=== PATIENT | male | born 1985 | race Hispanic/Latino ===

== ENCOUNTER 2021-10-01 18:27 | Inpatient (IN) | payer OTHER, SELFPAY ==
[~2021-10-01 18:27] MED LIST: Iopamidol-370 76% 500 ML 1 ML ONE
[2021-10-01] MEDS ORDERED: Promethazine HCl 25 MG/ML VIAL ONE (18:46)
[2021-10-01] MEDS ORDERED: Rocuronium Bromide 10 MG/ML (10ML VIAL) ONE (19:22)
[2021-10-01 19:27] LABS: #Eosinphils 0.1 thou/uL (0.0-0.7); #Lymphocytes 1.3 thou/uL (1.20-3.40); #Monocytes 0.8 thou/uL (0.11-0.59); %Basophils 0.3 % (0.0-1.0); %Eosinophils 0.6 % (0.0-10.0); %Lymphocytes 9.4 % (21.0-51.0); %Monocytes 5.9 % (0.0-10.0); %Neutrophils 83.8 % (42.0-75.0); Hemoglobin 12.5 g/dL (14.0-18.0); Mean Corpuscular HGB CONC 33.9 g/dL (32.0-36.0); Mean Corpuscular Hemoglobin 30.5 pg (27.0-31.0); Platelet Count 270 thou/uL (130-400); RBC Distribution Width 12.3 % (11.5-14.5); White Blood Cell (WBC) Count 14.3 thou/uL (4.8-10.8)
[2021-10-01] MEDS ORDERED: Fentanyl 100 MCG/2 ML VIAL ONE (19:33)
[2021-10-01 19:50] LABS: Acetaminophen Less than 10.0 mcg/mL (10.0-30.0); Alcohol Less than 10 mg/dL (Less than 10); Salicylate Less than 8.0 mg/dL (15.0-30.0)
[2021-10-01 19:51] LABS: ALT (SGPT) 17 U/L (8-55); AST (SGOT) 27 U/L (5-34); Albumin 4.2 g/dL (3.5-5.0); Alkaline Phosphatase 51 U/L (40-110); Anion Gap 13 mmol/L (10-20); BUN (Urea Nitrogen) 17 mg/dL (8.9-20.6); Bilirubin, Total 0.4 mg/dL (0.2-1.2); Calc. Creatinine Clearance 0 mL/min (70-130); Calcium 8.6 mg/dL (7.8-10.44); Carbon Dioxide 23 mmol/L (22-29); Chloride 105 mmol/L (98-107); Globulin 2.6 g/dL (2.4-3.5); Glucose 171 mg/dL (70-105); Potassium 3.1 mmol/L (3.5-5.1); Protein, Total 6.8 g/dL (6.0-8.3); Sodium 138 mmol/L (136-145)
[2021-10-01 19:53] LABS: Analyzer IN Cardio ER; Base Excess (BEa) -3.3 mEq/L (-2.0 to +3.0); Calcium, Ionized (arterial) 1.11 mmol/L (1.12-1.30); Carboxyhemoglobin (COHb) 0.3 gm% (0.0-3.0); Hemoglobin (Hb) 12.6 g/dL (14.0-18.0); O2 Tension (PaO2), arterial 171.7 mmHg (80.0-100.0); Potassium - ABG Lab 3.16 mmol/L (3.70-5.30)
[2021-10-01 19:59] LABS: Puncture Site RRA
[2021-10-01 20:20] LABS: INR-International Normal Ratio 1.1; PTT 24.6 sec (22.9-36.1); Prothrombin Time 13.8 sec (12.0-14.7)
[2021-10-01] MEDS ORDERED: Dextrose 50% Abboject 50 ML SYRINGE SLOW IVP PRN (20:23)
[2021-10-01] MEDS ORDERED: hydrALAZINE 20 MG/ML VIAL SLOW IVP PRN (20:23)
[2021-10-01] MEDS ORDERED: Dextrose 5% in Water 1,000 ML IV PRN (20:23)
[2021-10-01] MEDS ORDERED: levETIRAcetam 500 MG/5 ML VIAL ONE ×2 (20:28→20:29)
[2021-10-01] MEDS ORDERED: Ventilator Sedation Protocol 1 EACH FS ONE (20:31)
[2021-10-01] MEDS ORDERED: Acetaminophen 650 MG/20.3 ML UDCUP PER TUBE PRN (20:32)
[2021-10-01 20:54] LABS: Magnesium 1.8 mg/dL (1.6-2.6); Phosphorus 3.6 mg/dL (2.3-4.7)
[2021-10-01 21:13] LABS: SARS-CoV-2 NAA Rapid Test Not Detected (NotDetected)
[2021-10-01] MEDS: Sodium Chloride 0.9% 1,000 ML IV SCH (21:30)
[2021-10-01] MEDS ORDERED: DISCONTINUE PREVIOUS NARCOTIC PAIN MEDICATIONS AND BENZODIAZEPINES FS SCH (21:30)
[2021-10-01] MEDS ORDERED: Fentanyl BOLUS 250 ML IVPB PRN (21:30)
[2021-10-01] MEDS ORDERED: Propofol 1,000 MG/100 ML VIAL IV PRN (21:30)
[2021-10-01] MEDS ORDERED: Lorazepam 2 MG/ML VIAL SLOW IVP PRN (21:30)
[2021-10-01] MEDS ORDERED: Morphine 4 MG/ML VIAL SLOW IVP PRN (21:30)
[2021-10-01] MEDS ORDERED: Calcium Gluconate 4.6 MEQ in Sodium Chloride 0.9% 100 ML IVPB SCH (21:30)
[2021-10-01] MEDS ORDERED: Propofol BOLUS 1,000 MG/100 ML VIAL IV PRN (21:30)
[2021-10-01] MEDS ORDERED: Midazolam HCl 2 mg/2 ml Vial ONE (21:33)
[2021-10-01] MEDS ORDERED: Midazolam HCl 2 mg/2 ml Vial SLOW IVP SCH (21:45)
[2021-10-01] MEDS ORDERED: Acetaminophen 650 MG/20.3 ML UDCUP PO PRN (21:46)
[2021-10-01] MEDS: Famotidine/PF 20 mg/2ml Vial SLOW IVP SCH (23:01)
[2021-10-01 23:17] LABS: Bacteria/HPF None Seen HPF (None Seen); Bilirubin Negative (Negative); Blood, Urine Negative (Negative); Clarity Clear (Clear); Glucose, Urine (Dipstick) 30 mg/dL (Negative); Ketone, Urine Negative (Negative); Leukocyte Negative Leu/uL (Negative); Nitrite Negative (Negative); Protein, Urine (Dipstick) Negative (Neg-Trace); RBC/HPF 0-3 HPF (0-3); Specific Gravity, Urine 1.034 (1.002-1.036); Squamous Epithelial None Seen HPF (0-3); Urobilinogen Normal mg/dL (Less than 2); WBC/HPF 0-3 HPF (0-3); pH, Urine 6.5 (5.0-9.0)
[2021-10-01 23:25] LABS: Amphetamine Not Detected (NotDetected); Barbiturates Screen Not Detected (NotDetected); Benzodiazepine Screen Not Detected (NotDetected); Cocaine Metabolite Screen Not Detected (NotDetected); Methadone Not Detected (NotDetected); Methamphetamine Not Detected (NotDetected); Opiate Screen Not Detected (NotDetected); Oxycodone Screen Not Detected (NotDetected); Phencyclidine (PCP) Not Detected (NotDetected); THC/Cannabinoid Screen Not Detected (NotDetected); Tricyclic Screen Not Detected (NotDetected)
[2021-10-01] MEDS: Potassium Chloride 20 MEQ in Premix Bag 1 BAG IVPB SCH (23:29)
[2021-10-02] MEDS: Potassium Chloride 20 MEQ in Premix Bag 1 BAG IVPB SCH (01:23)
[2021-10-02 04:59] LABS: #Lymphocytes 0.7 thou/uL (1.20-3.40); #Monocytes 0.9 thou/uL (0.11-0.59); #Neutrophils 11.3 thou/uL (1.40-6.50); %Basophils 0.2 % (0.0-1.0); %Eosinophils 0.2 % (0.0-10.0); %Lymphocytes 5.3 % (21.0-51.0); %Monocytes 7.2 % (0.0-10.0); %Neutrophils 87.2 % (42.0-75.0); Hemoglobin 11.8 g/dL (14.0-18.0); Mean Corpuscular HGB CONC 33.4 g/dL (32.0-36.0); Mean Corpuscular Hemoglobin 30.2 pg (27.0-31.0); Mean Corpuscular Volume 90.4 fL (78.0-98.0); Mean Platelet Volume 7.2 fL (7.4-10.4); Platelet Count 246 thou/uL (130-400); RBC Distribution Width 12.5 % (11.5-14.5); Red Blood Cell (RBC) Count 3.89 mill/uL (4.70-6.10)
[2021-10-02 05:11] LABS: INR-International Normal Ratio 1.1; PTT 26.4 sec (22.9-36.1)
[2021-10-02 05:23] LABS: Anion Gap 13 mmol/L (10-20); BUN (Urea Nitrogen) 11 mg/dL (8.9-20.6); Calc. Creatinine Clearance 174 mL/min (70-130); Calcium 8.8 mg/dL (7.8-10.44); Carbon Dioxide 22 mmol/L (22-29); Chloride 108 mmol/L (98-107); Glucose 120 mg/dL (70-105); Magnesium 1.8 mg/dL (1.6-2.6); Potassium 4.1 mmol/L (3.5-5.1); Sodium 139 mmol/L (136-145)
[2021-10-02 05:30] LABS: Phosphorus 2.4 mg/dL (2.3-4.7)
[2021-10-02] MEDS: Sodium Chloride 0.9% 1,000 ML IV SCH ×3 (06:26→23:20)
[2021-10-02] MEDS: fentaNYL Citrate-0.9 % NaCl/PF 100 ML IV SCH (06:37)
[2021-10-02 07:56] LABS: Actual Bicarbonate (HCO3a) 23.3 mEq/L (22-28); Base Excess (BEa) -0.7 mEq/L (-2.0 to +3.0); CO2 Tension 36.5 mmHg (35.0-45.0); Calcium, Ionized (arterial) 1.17 mmol/L (1.12-1.30); Carboxyhemoglobin (COHb) 0.1 gm% (0.0-3.0); Hemoglobin (Hb) 12.5 g/dL (14.0-18.0); O2 Tension (PaO2), arterial 127.7 mmHg (80.0-100.0); Potassium - ABG Lab 3.71 mmol/L (3.70-5.30); pH, Arterial 7.42 (7.35-7.45)
[2021-10-02] MEDS ORDERED: Sodium Phosphate 15 MMOL in Sodium Chloride 0.9% 250 ML 250 ML IVPB SCH (08:00)
[2021-10-02] MEDS ORDERED: Magnesium 2 GM/50 ML(in water) 2 GM in Premix Bag 1 BAG IVPB SCH (08:00)
[2021-10-02 08:08] LABS: Puncture Site RRA
[2021-10-02 08:09] LABS: ALV-art Gradient 111.875 mmHg (0-20)
[2021-10-02] MEDS: Famotidine/PF 20 mg/2ml Vial SLOW IVP SCH ×2 (08:22→21:20)
[2021-10-02] MEDS ORDERED: Sodium Chloride 0.9% 1,000 ML IV SCH (11:30)
[2021-10-02] MEDS: carBAMazepine 200 MG TAB PO SCH (12:12)
[2021-10-02 21:07] LABS: #Lymphocytes 0.7 thou/uL (1.20-3.40); #Monocytes 0.5 thou/uL (0.11-0.59); #Neutrophils 7.5 thou/uL (1.40-6.50); %Basophils 0.1 % (0.0-1.0); %Eosinophils 0.2 % (0.0-10.0); %Lymphocytes 8.2 % (21.0-51.0); %Monocytes 6.1 % (0.0-10.0); %Neutrophils 85.3 % (42.0-75.0); Hemoglobin 11.4 g/dL (14.0-18.0); Mean Corpuscular HGB CONC 33.7 g/dL (32.0-36.0); Mean Corpuscular Volume 91.7 fL (78.0-98.0); Mean Platelet Volume 7.7 fL (7.4-10.4); Platelet Count 209 thou/uL (130-400); RBC Distribution Width 12.7 % (11.5-14.5); Red Blood Cell (RBC) Count 3.68 mill/uL (4.70-6.10); White Blood Cell (WBC) Count 8.7 thou/uL (4.8-10.8)
[2021-10-02] MEDS: levETIRAcetam in NS 500 MG in Premix Bag 1 BAG IVPB SCH (21:23)
[2021-10-02 21:29] LABS: Magnesium 1.9 mg/dL (1.6-2.6); Phosphorus 2.2 mg/dL (2.3-4.7)
[2021-10-02 21:30] LABS: ALT (SGPT) 12 U/L (8-55); AST (SGOT) 38 U/L (5-34); Albumin 3.3 g/dL (3.5-5.0); Alkaline Phosphatase 39 U/L (40-110); Anion Gap 12 mmol/L (10-20); BUN (Urea Nitrogen) 9 mg/dL (8.9-20.6); Bilirubin, Total 1.3 mg/dL (0.2-1.2); Calc. Creatinine Clearance 180 mL/min (70-130); Calcium 7.9 mg/dL (7.8-10.44); Carbon Dioxide 20 mmol/L (22-29); Chloride 112 mmol/L (98-107); Globulin 3.1 g/dL (2.4-3.5); Glucose 103 mg/dL (70-105); Potassium 4.9 mmol/L (3.5-5.1); Protein, Total 6.4 g/dL (6.0-8.3); Sodium 139 mmol/L (136-145)
[2021-10-02] MEDS ORDERED: carBAMazepine 200 MG TAB PO SCH (21:30)
[2021-10-02 21:53] LABS: Actual Bicarbonate (HCO3a) 20.7 mEq/L (22-28); Base Excess (BEa) -4.9 mEq/L (-2.0 to +3.0); Calcium, Ionized (arterial) 1.17 mmol/L (1.12-1.30); Carboxyhemoglobin (COHb) 0.3 gm% (0.0-3.0); Hemoglobin (Hb) 12.1 g/dL (14.0-18.0); O2 Tension (PaO2), arterial 65.1 mmHg (80.0-100.0); Potassium - ABG Lab 3.93 mmol/L (3.70-5.30); pH, Arterial 7.33 (7.35-7.45)
[2021-10-02] MEDS ORDERED: Piperacillin/Tazobactam 3.375 GM in Sodium Chloride 0.9% 100 ML IVPB SCH (22:00)
[2021-10-02] MEDS ORDERED: Midazolam HCl 2 mg/2 ml Vial ONE (22:06)
[2021-10-02] MEDS ORDERED: Vecuronium 10 MG VIAL ONE (22:11)
[2021-10-02] MEDS ORDERED: Sterile Water 10 ML ONE (22:11)
[2021-10-02] MEDS ORDERED: Midazolam HCl 2 mg/2 ml Vial SLOW IVP SCH (22:15)
[2021-10-02] MEDS ORDERED: Vecuronium 10 MG VIAL IVP SCH (22:15)
[2021-10-02 22:27] LABS: Puncture Site RRA
[2021-10-02] MEDS ORDERED: Sodium Phosphate 30 MMOL in Sodium Chloride 0.9% 250 ML 250 ML IVPB SCH (23:00)
[2021-10-03] MEDS ORDERED: ALBUMIN 5% 25 GM/500 ML BAG IVPB SCH (00:15)
[2021-10-03] MEDS: fentaNYL Citrate-0.9 % NaCl/PF 100 ML IV SCH (01:28)
[2021-10-03] MEDS: carBAMazepine 200 MG TAB PO SCH (02:24)
[2021-10-03] MEDS ORDERED: Propofol BOLUS 1,000 MG/100 ML VIAL IV PRN ×2 (03:30→14:30)
[2021-10-03] MEDS ORDERED: Propofol 1,000 MG/100 ML VIAL IV PRN (03:30)
[2021-10-03] MEDS: Piperacillin/Tazobactam 3.375 GM in Sodium Chloride 0.9% 100 ML IVPB SCH ×3 (04:28→21:09)
[2021-10-03 04:36] LABS: #Lymphocytes 0.6 thou/uL (1.20-3.40); #Monocytes 0.5 thou/uL (0.11-0.59); #Neutrophils 8.5 thou/uL (1.40-6.50); %Basophils 0.1 % (0.0-1.0); %Eosinophils 0.1 % (0.0-10.0); %Lymphocytes 6.5 % (21.0-51.0); %Monocytes 5.2 % (0.0-10.0); %Neutrophils 88.1 % (42.0-75.0); Hemoglobin 10.7 g/dL (14.0-18.0); Mean Corpuscular Hemoglobin 30.6 pg (27.0-31.0); Mean Platelet Volume 7.5 fL (7.4-10.4); Platelet Count 192 thou/uL (130-400); RBC Distribution Width 12.4 % (11.5-14.5); Red Blood Cell (RBC) Count 3.47 mill/uL (4.70-6.10); White Blood Cell (WBC) Count 9.6 thou/uL (4.8-10.8)
[2021-10-03 05:21] LABS: Anion Gap 11 mmol/L (10-20); BUN (Urea Nitrogen) 12 mg/dL (8.9-20.6); Calc. Creatinine Clearance 185 mL/min (70-130); Carbon Dioxide 21 mmol/L (22-29); Chloride 113 mmol/L (98-107); Glucose 104 mg/dL (70-105); Phosphorus 2.8 mg/dL (2.3-4.7); Potassium 3.8 mmol/L (3.5-5.1); Sodium 141 mmol/L (136-145)
[2021-10-03] MEDS ORDERED: Potassium Phosphate 15 MMOL in Sodium Chloride 0.9% 250 ML 250 ML IVPB SCH (08:00)
[2021-10-03] MEDS ORDERED: carBAMazepine 200 MG TAB PO SCH (08:00)
[2021-10-03] MEDS ORDERED: Acetaminophen/Codeine 30-300mg Tablet PO PRN (08:38)
[2021-10-03] MEDS: Acetaminophen 650 MG/20.3 ML UDCUP PER TUBE SCH ×3 (10:14→18:22)
[2021-10-03] MEDS: Famotidine/PF 20 mg/2ml Vial SLOW IVP SCH ×2 (10:16→21:09)
[2021-10-03] MEDS: levETIRAcetam in NS 500 MG in Premix Bag 1 BAG IVPB SCH ×2 (10:17→21:09)
[2021-10-03] MEDS: Polyethylene Glycol 3350 17 GM Packet PO SCH (10:18)
[2021-10-03] MEDS: Senokot S 8.6-50 MG TAB PO SCH ×2 (10:18→21:09)
[2021-10-03] MEDS: Sodium Chloride 0.9% 1,000 ML IV SCH ×2 (10:19→18:17)
[2021-10-03] MEDS ORDERED: Lorazepam 2 MG/ML VIAL ONE ×2 (13:58→14:03)
[2021-10-03] MEDS ORDERED: Propofol 1,000 MG/100 ML VIAL IV ONE (14:13)
[2021-10-03] MEDS ORDERED: Lorazepam 2 MG/ML VIAL SLOW IVP SCH ×2 (14:15→14:30)
[2021-10-03] MEDS ORDERED: Ventilator Sedation Protocol 1 EACH FS SCH (14:15)
[2021-10-03] MEDS ORDERED: Fentanyl BOLUS 250 ML IVPB PRN (14:30)
[2021-10-03] MEDS ORDERED: DISCONTINUE PREVIOUS NARCOTIC PAIN MEDICATIONS AND BENZODIAZEPINES FS SCH (14:30)
[2021-10-03] MEDS: Propofol 1,000 MG/100 ML VIAL IV PRN (21:24)
[2021-10-04] MEDS: Propofol 1,000 MG/100 ML VIAL IV PRN ×3 (00:45→17:24)
[2021-10-04] MEDS: Acetaminophen 650 MG/20.3 ML UDCUP PER TUBE SCH ×4 (01:30→17:52)
[2021-10-04] MEDS: Sodium Chloride 0.9% 1,000 ML IV SCH ×3 (01:40→17:29)
[2021-10-04] MEDS: hydrALAZINE 20 MG/ML VIAL SLOW IVP PRN ×2 (03:32→07:18)
[2021-10-04] MEDS: Piperacillin/Tazobactam 3.375 GM in Sodium Chloride 0.9% 100 ML IVPB SCH ×3 (03:34→20:42)
[2021-10-04 04:07] LABS: #Eosinphils 0.1 thou/uL (0.0-0.7); #Lymphocytes 0.6 thou/uL (1.20-3.40); #Monocytes 0.6 thou/uL (0.11-0.59); #Neutrophils 7.9 thou/uL (1.40-6.50); %Basophils 0.2 % (0.0-1.0); %Eosinophils 0.9 % (0.0-10.0); %Monocytes 6.1 % (0.0-10.0); %Neutrophils 85.8 % (42.0-75.0); Hemoglobin 10.1 g/dL (14.0-18.0); Mean Corpuscular HGB CONC 33.4 g/dL (32.0-36.0); Mean Corpuscular Volume 92.6 fL (78.0-98.0); Mean Platelet Volume 7.3 fL (7.4-10.4); Platelet Count 213 thou/uL (130-400); RBC Distribution Width 12.3 % (11.5-14.5); Red Blood Cell (RBC) Count 3.25 mill/uL (4.70-6.10); White Blood Cell (WBC) Count 9.2 thou/uL (4.8-10.8)
[2021-10-04 04:35] LABS: Anion Gap 9 mmol/L (10-20); BUN (Urea Nitrogen) 10 mg/dL (8.9-20.6); Calc. Creatinine Clearance 219 mL/min (70-130); Calcium 8.2 mg/dL (7.8-10.44); Carbon Dioxide 26 mmol/L (22-29); Chloride 110 mmol/L (98-107); Glucose 113 mg/dL (70-105); Magnesium 2.1 mg/dL (1.6-2.6); Phosphorus 1.2 mg/dL (2.3-4.7); Potassium 3.4 mmol/L (3.5-5.1); Sodium 142 mmol/L (136-145)
[2021-10-04] MEDS: fentaNYL Citrate-0.9 % NaCl/PF 100 ML IV SCH (05:08)
[2021-10-04 06:51] LABS: Actual Bicarbonate (HCO3a) 24.4 mEq/L (22-28); Base Excess (BEa) 0.8 mEq/L (-2.0 to +3.0); CO2 Tension 34.9 mmHg (35.0-45.0); Calcium, Ionized (arterial) 1.16 mmol/L (1.12-1.30); Carboxyhemoglobin (COHb) 0.3 gm% (0.0-3.0); Hemoglobin (Hb) 9.5 g/dL (14.0-18.0); O2 Tension (PaO2), arterial 95.8 mmHg (80.0-100.0); Potassium - ABG Lab 3.55 mmol/L (3.70-5.30); pH, Arterial 7.46 (7.35-7.45)
[2021-10-04 07:00] LABS: Puncture Site RRA
[2021-10-04 07:01] LABS: ALV-art Gradient 395.325 mmHg (0-20)
[2021-10-04] MEDS ORDERED: Furosemide 20 MG/2 ML VIAL SLOW IVP SCH (08:30)
[2021-10-04] MEDS: Senokot S 8.6-50 MG TAB PO SCH ×2 (08:43→20:47)
[2021-10-04] MEDS: Famotidine/PF 20 mg/2ml Vial SLOW IVP SCH ×2 (08:43→20:47)
[2021-10-04] MEDS: Lisinopril 10 MG TAB PO SCH (08:44)
[2021-10-04] MEDS: Polyethylene Glycol 3350 17 GM Packet PO SCH (08:44)
[2021-10-04] MEDS: levETIRAcetam in NS 500 MG in Premix Bag 1 BAG IVPB SCH ×2 (09:40→21:18)
[2021-10-05] MEDS: Sodium Chloride 0.9% 1,000 ML IV SCH ×3 (00:06→17:32)
[2021-10-05] MEDS: Acetaminophen 650 MG/20.3 ML UDCUP PER TUBE SCH ×4 (01:06→18:15)
[2021-10-05] MEDS: Propofol 1,000 MG/100 ML VIAL IV PRN ×3 (02:03→13:42)
[2021-10-05] MEDS: hydrALAZINE 20 MG/ML VIAL SLOW IVP PRN (03:59)
[2021-10-05] MEDS: Piperacillin/Tazobactam 3.375 GM in Sodium Chloride 0.9% 100 ML IVPB SCH ×2 (04:00→14:07)
[2021-10-05 04:16] LABS: #Eosinphils 0.1 thou/uL (0.0-0.7); #Lymphocytes 0.8 thou/uL (1.20-3.40); #Monocytes 0.7 thou/uL (0.11-0.59); #Neutrophils 10.2 thou/uL (1.40-6.50); %Basophils 0.1 % (0.0-1.0); %Eosinophils 0.8 % (0.0-10.0); %Lymphocytes 6.7 % (21.0-51.0); %Monocytes 5.8 % (0.0-10.0); %Neutrophils 86.5 % (42.0-75.0); Hemoglobin 10.5 g/dL (14.0-18.0); Mean Corpuscular HGB CONC 33.6 g/dL (32.0-36.0); Mean Corpuscular Hemoglobin 30.9 pg (27.0-31.0); Mean Corpuscular Volume 92.1 fL (78.0-98.0); Mean Platelet Volume 7.4 fL (7.4-10.4); Platelet Count 288 thou/uL (130-400); RBC Distribution Width 12.4 % (11.5-14.5); White Blood Cell (WBC) Count 11.8 thou/uL (4.8-10.8)
[2021-10-05 04:39] LABS: Anion Gap 12 mmol/L (10-20); BUN (Urea Nitrogen) 13 mg/dL (8.9-20.6); Calc. Creatinine Clearance 205 mL/min (70-130); Calcium 8.6 mg/dL (7.8-10.44); Carbon Dioxide 26 mmol/L (22-29); Chloride 106 mmol/L (98-107); Glucose 134 mg/dL (70-105); Magnesium 2.2 mg/dL (1.6-2.6); Phosphorus 1.7 mg/dL (2.3-4.7); Potassium 3.4 mmol/L (3.5-5.1); Sodium 141 mmol/L (136-145)
[2021-10-05] MEDS ORDERED: Potassium Phosphate 30 MMOL in Sodium Chloride 0.9% 250 ML 250 ML IVPB SCH ×2 (05:00→07:30)
[2021-10-05] MEDS: fentaNYL Citrate-0.9 % NaCl/PF 100 ML IV SCH (07:01)
[2021-10-05] MEDS: Lisinopril 10 MG TAB PO SCH (08:04)
[2021-10-05] MEDS: Polyethylene Glycol 3350 17 GM Packet PO SCH (08:04)
[2021-10-05] MEDS: Saccharomyces boulardii 250 MG CAP PO SCH (08:04)
[2021-10-05] MEDS: Senokot S 8.6-50 MG TAB PO SCH ×2 (08:04→20:41)
[2021-10-05] MEDS: Famotidine/PF 20 mg/2ml Vial SLOW IVP SCH ×2 (08:04→20:41)
[2021-10-05] MEDS: levETIRAcetam in NS 500 MG in Premix Bag 1 BAG IVPB SCH (09:09)
[2021-10-05] MEDS: cefTRIAXone\\ROCEPHIN 2 GM in Sodium Chloride 0.9% 100 ML IVPB SCH (13:37)
[2021-10-05] MEDS: levETIRAcetam 500 MG/5 ML VIAL SLOW IVP SCH (21:33)
[2021-10-06] MEDS: Acetaminophen 650 MG/20.3 ML UDCUP PER TUBE SCH ×4 (01:11→18:24)
[2021-10-06] MEDS: Sodium Chloride 0.9% 1,000 ML IV SCH (01:13)
[2021-10-06] MEDS: Propofol 1,000 MG/100 ML VIAL IV PRN ×4 (01:22→19:51)
[2021-10-06] MEDS: fentaNYL Citrate-0.9 % NaCl/PF 100 ML IV SCH ×2 (03:30→23:32)
[2021-10-06 05:07] LABS: #Eosinphils 0.1 thou/uL (0.0-0.7); #Lymphocytes 0.9 thou/uL (1.20-3.40); #Monocytes 0.8 thou/uL (0.11-0.59); #Neutrophils 10.3 thou/uL (1.40-6.50); %Basophils 0.2 % (0.0-1.0); %Eosinophils 0.8 % (0.0-10.0); %Lymphocytes 7.6 % (21.0-51.0); %Monocytes 6.3 % (0.0-10.0); %Neutrophils 85.1 % (42.0-75.0); Hemoglobin 10.2 g/dL (14.0-18.0); Mean Corpuscular HGB CONC 33.7 g/dL (32.0-36.0); Mean Corpuscular Hemoglobin 31.2 pg (27.0-31.0); Mean Corpuscular Volume 92.6 fL (78.0-98.0); Mean Platelet Volume 7.2 fL (7.4-10.4); Platelet Count 322 thou/uL (130-400); RBC Distribution Width 12.7 % (11.5-14.5); Red Blood Cell (RBC) Count 3.28 mill/uL (4.70-6.10); White Blood Cell (WBC) Count 12.2 thou/uL (4.8-10.8)
[2021-10-06 05:38] LABS: Anion Gap 13 mmol/L (10-20); BUN (Urea Nitrogen) 14 mg/dL (8.9-20.6); Calc. Creatinine Clearance 222 mL/min (70-130); Calcium 8.7 mg/dL (7.8-10.44); Carbon Dioxide 26 mmol/L (22-29); Chloride 105 mmol/L (98-107); Glucose 110 mg/dL (70-105); Magnesium 2.4 mg/dL (1.6-2.6); Phosphorus 2.1 mg/dL (2.3-4.7); Potassium 3.6 mmol/L (3.5-5.1); Sodium 140 mmol/L (136-145)
[2021-10-06] MEDS ORDERED: Potassium Phosphate 30 MMOL in Sodium Chloride 0.9% 250 ML 250 ML IVPB SCH (07:45)
[2021-10-06] MEDS: Lisinopril 10 MG TAB PO SCH (08:33)
[2021-10-06] MEDS: levETIRAcetam 500 MG/5 ML VIAL SLOW IVP SCH ×2 (08:34→21:00)
[2021-10-06] MEDS: Polyethylene Glycol 3350 17 GM Packet PO SCH (08:34)
[2021-10-06] MEDS: Famotidine/PF 20 mg/2ml Vial SLOW IVP SCH (08:34)
[2021-10-06] MEDS: Saccharomyces boulardii 250 MG CAP PO SCH (08:34)
[2021-10-06] MEDS: Lisinopril 20 MG TAB PO SCH (08:47)
[2021-10-06] MEDS: Senokot S 8.6-50 MG TAB PO SCH ×2 (08:56→21:00)
[2021-10-06] MEDS: Famotidine 20 MG TAB PER TUBE SCH ×2 (09:10→21:00)
[2021-10-06] MEDS ORDERED: Vecuronium 10 MG VIAL IVP SCH (09:45)
[2021-10-06] MEDS ORDERED: Vecuronium 10 MG VIAL ONE (09:48)
[2021-10-06] MEDS: cefTRIAXone\\ROCEPHIN 2 GM in Sodium Chloride 0.9% 100 ML IVPB SCH (12:42)
[2021-10-06] MEDS: hydrALAZINE 20 MG/ML VIAL SLOW IVP PRN (21:00)
[2021-10-07] MEDS: Propofol 1,000 MG/100 ML VIAL IV PRN ×6 (00:08→22:47)
[2021-10-07] MEDS: Acetaminophen 650 MG/20.3 ML UDCUP PER TUBE SCH ×4 (00:08→18:17)
[2021-10-07 04:32] LABS: Band 11 % (5-11); Eosinophils 3 % (0-10); Hemoglobin 10.6 g/dL (14.0-18.0); Lymphocytes 12 % (21-51); MDiff Complete? YES; Mean Corpuscular HGB CONC 33.6 g/dL (32.0-36.0); Mean Corpuscular Hemoglobin 31.1 pg (27.0-31.0); Mean Corpuscular Volume 92.5 fL (78.0-98.0); Mean Platelet Volume 7.1 fL (7.4-10.4); Monocytes 4 % (0-10); Myelocyte 2 % (0-0); Neutrophil 68 % (42-75); Platelet Count 339 thou/uL (130-400); RBC Distribution Width 12.8 % (11.5-14.5); White Blood Cell (WBC) Count 13.1 thou/uL (4.8-10.8)
[2021-10-07 04:35] LABS: Anion Gap 12 mmol/L (10-20); BUN (Urea Nitrogen) 19 mg/dL (8.9-20.6); Calc. Creatinine Clearance 212 mL/min (70-130); Calcium 8.8 mg/dL (7.8-10.44); Carbon Dioxide 26 mmol/L (22-29); Chloride 107 mmol/L (98-107); Glucose 120 mg/dL (70-105); Magnesium 2.2 mg/dL (1.6-2.6); Phosphorus 2.7 mg/dL (2.3-4.7); Potassium 3.3 mmol/L (3.5-5.1); Sodium 142 mmol/L (136-145)
[2021-10-07] MEDS ORDERED: Sodium Bicarbonate Tab 325 MG TAB PER TUBE PRN (06:30)
[2021-10-07] MEDS ORDERED: Pancrelipase DR 12,000 1 CAP FS PRN (06:30)
[2021-10-07] MEDS: risperiDONE 1 MG TAB PO SCH ×2 (08:21→20:16)
[2021-10-07] MEDS: levETIRAcetam 500 MG/5 ML VIAL SLOW IVP SCH ×2 (08:21→20:16)
[2021-10-07] MEDS: Saccharomyces boulardii 250 MG CAP PO SCH (08:21)
[2021-10-07] MEDS: Famotidine 20 MG TAB PER TUBE SCH ×2 (08:21→20:16)
[2021-10-07] MEDS: Lisinopril 20 MG TAB PO SCH ×2 (08:22→20:16)
[2021-10-07] MEDS: Potassium Chloride 20 MEQ in Premix Bag 1 BAG IVPB SCH ×2 (08:22→11:14)
[2021-10-07] MEDS: Senokot S 8.6-50 MG TAB PO SCH ×2 (08:26→20:31)
[2021-10-07] MEDS: Polyethylene Glycol 3350 17 GM Packet PO SCH (08:26)
[2021-10-07] MEDS ORDERED: hydrALAZINE 20 MG/ML VIAL SLOW IVP PRN (08:50)
[2021-10-07] MEDS: cefTRIAXone\\ROCEPHIN 2 GM in Sodium Chloride 0.9% 100 ML IVPB SCH (13:58)
[2021-10-07] MEDS ORDERED: Labetalol HCl 100 MG/20 ML VIAL SLOW IVP PRN (14:31)
[2021-10-07] MEDS: fentaNYL Citrate-0.9 % NaCl/PF 100 ML IV SCH (15:41)
[2021-10-07] MEDS: cloNIDine 0.1 MG TAB PO SCH ×2 (18:18→22:47)
[2021-10-08] MEDS: Acetaminophen 650 MG/20.3 ML UDCUP PER TUBE SCH ×4 (00:49→19:47)
[2021-10-08] MEDS: Propofol 1,000 MG/100 ML VIAL IV PRN ×3 (02:21→12:43)
[2021-10-08 04:25] LABS: Hemoglobin 10.6 g/dL (14.0-18.0); Mean Corpuscular HGB CONC 33.9 g/dL (32.0-36.0); Mean Corpuscular Hemoglobin 31.4 pg (27.0-31.0); Mean Corpuscular Volume 92.7 fL (78.0-98.0); Mean Platelet Volume 7.2 fL (7.4-10.4); Platelet Count 375 thou/uL (130-400); RBC Distribution Width 13.2 % (11.5-14.5); Red Blood Cell (RBC) Count 3.37 mill/uL (4.70-6.10); White Blood Cell (WBC) Count 12.2 thou/uL (4.8-10.8)
[2021-10-08 05:10] LABS: Anion Gap 13 mmol/L (10-20); BUN (Urea Nitrogen) 23 mg/dL (8.9-20.6); Calc. Creatinine Clearance 0 mL/min (70-130); Calcium 8.8 mg/dL (7.8-10.44); Carbon Dioxide 26 mmol/L (22-29); Chloride 107 mmol/L (98-107); Glucose 125 mg/dL (70-105); Magnesium 2.3 mg/dL (1.6-2.6); Phosphorus 3.6 mg/dL (2.3-4.7); Potassium 3.8 mmol/L (3.5-5.1); Sodium 142 mmol/L (136-145)
[2021-10-08 05:42] LABS: Band 10 % (5-11); Eosinophils 2 % (0-10); Lymphocytes 11 % (21-51); MDiff Complete? YES; Monocytes 9 % (0-10); Neutrophil 68 % (42-75)
[2021-10-08] MEDS: cloNIDine 0.1 MG TAB PO SCH ×2 (06:08→11:50)
[2021-10-08] MEDS ORDERED: Vecuronium 10 MG VIAL IVP SCH (09:00)
[2021-10-08] MEDS ORDERED: carBAMazepine 200 MG/10 ML UDCUP PO SCH (09:00)
[2021-10-08] MEDS: Saccharomyces boulardii 250 MG CAP PO SCH (10:12)
[2021-10-08] MEDS: Famotidine 20 MG TAB PER TUBE SCH ×2 (10:12→19:51)
[2021-10-08] MEDS: levETIRAcetam 500 MG/5 ML VIAL SLOW IVP SCH ×2 (10:12→19:50)
[2021-10-08] MEDS: Senokot S 8.6-50 MG TAB PO SCH ×2 (10:12→19:51)
[2021-10-08] MEDS: risperiDONE 1 MG TAB PO SCH ×2 (10:13→19:51)
[2021-10-08] MEDS: Lisinopril 20 MG TAB PO SCH ×2 (10:13→19:50)
[2021-10-08] MEDS: Polyethylene Glycol 3350 17 GM Packet PO SCH (10:13)
[2021-10-08] MEDS ORDERED: Midazolam HCl 2 mg/2 ml Vial SLOW IVP SCH (10:45)
[2021-10-08 12:19] LABS: SARS-CoV-2 PCR by NAA Not Detected (NotDetected)
[2021-10-08] MEDS: cefTRIAXone\\ROCEPHIN 2 GM in Sodium Chloride 0.9% 100 ML IVPB SCH (12:22)
[2021-10-08] MEDS: fentaNYL Citrate-0.9 % NaCl/PF 100 ML IV SCH (12:34)
[2021-10-08] MEDS ORDERED: Acetaminophen 325 MG/10.15 ML UDCUP PO SCH (14:30)
[2021-10-08 15:56] LABS: Actual Bicarbonate (HCO3a) 24.6 mEq/L (22-28); Base Excess (BEa) 1.7 mEq/L (-2.0 to +3.0); CO2 Tension 32.7 mmHg (35.0-45.0); Calcium, Ionized (arterial) 1.15 mmol/L (1.12-1.30); Carboxyhemoglobin (COHb) 0.3 gm% (0.0-3.0); Hemoglobin (Hb) 11.7 g/dL (14.0-18.0); O2 Tension (PaO2), arterial 52.4 mmHg (80.0-100.0); Potassium - ABG Lab 4.33 mmol/L (3.70-5.30); Puncture Site RRA; pH, Arterial 7.49 (7.35-7.45)
[2021-10-08 15:57] LABS: ALV-art Gradient 263.225 mmHg (0-20)
[2021-10-08] MEDS ORDERED: Sodium Chloride 0.9% 1,000 ML IV SCH (17:45)
[2021-10-08] MEDS: Bacitracin 1 PK TOP SCH (19:50)
[2021-10-08] MEDS: Melatonin 3 MG TAB PER TUBE PRN (22:38)
[2021-10-08] MEDS: Labetalol HCl 100 MG/20 ML VIAL SLOW IVP PRN (22:39)
[2021-10-09 04:49] LABS: Anion Gap 19 mmol/L (10-20); BUN (Urea Nitrogen) 20 mg/dL (8.9-20.6); Calc. Creatinine Clearance 202 mL/min (70-130); Calcium 8.8 mg/dL (7.8-10.44); Carbon Dioxide 19 mmol/L (22-29); Chloride 108 mmol/L (98-107); Glucose 110 mg/dL (70-105); Magnesium 2.2 mg/dL (1.6-2.6); Phosphorus 3.4 mg/dL (2.3-4.7); Potassium 4.1 mmol/L (3.5-5.1); Sodium 142 mmol/L (136-145)
[2021-10-09 05:05] LABS: Band 12 % (5-11); Hemoglobin 10.4 g/dL (14.0-18.0); Lymphocytes 7 % (21-51); MDiff Complete? YES; Mean Corpuscular HGB CONC 32.8 g/dL (32.0-36.0); Mean Corpuscular Volume 91.4 fL (78.0-98.0); Mean Platelet Volume 7.6 fL (7.4-10.4); Metamyelocyte 2 % (0-0); Monocytes 4 % (0-10); Myelocyte 4 % (0-0); Neutrophil 71 % (42-75); Platelet Count 326 thou/uL (130-400); Red Blood Cell (RBC) Count 3.48 mill/uL (4.70-6.10); Toxic Granulation SLIGHT; White Blood Cell (WBC) Count 13.3 thou/uL (4.8-10.8)
[2021-10-09] MEDS: Acetaminophen 650 MG/20.3 ML UDCUP PER TUBE SCH ×5 (06:07→23:35)
[2021-10-09] MEDS: Lisinopril 20 MG TAB PO SCH ×2 (09:21→21:38)
[2021-10-09] MEDS: levETIRAcetam 500 MG/5 ML VIAL SLOW IVP SCH ×2 (09:22→21:38)
[2021-10-09] MEDS: risperiDONE 1 MG TAB PO SCH ×2 (09:22→21:38)
[2021-10-09] MEDS: Saccharomyces boulardii 250 MG CAP PO SCH (09:22)
[2021-10-09] MEDS: Bacitracin 1 PK TOP SCH ×2 (09:22→22:52)
[2021-10-09] MEDS: Polyethylene Glycol 3350 17 GM Packet PO SCH (09:22)
[2021-10-09] MEDS: Famotidine 20 MG TAB PO SCH ×2 (09:22→21:37)
[2021-10-09] MEDS: Senokot S 8.6-50 MG TAB PO SCH ×2 (10:13→21:38)
[2021-10-09] MEDS: cefTRIAXone\\ROCEPHIN 2 GM in Sodium Chloride 0.9% 100 ML IVPB SCH (12:42)
[2021-10-09] MEDS: Labetalol HCl 100 MG/20 ML VIAL SLOW IVP PRN (21:53)
[2021-10-10] MEDS: Acetaminophen 650 MG/20.3 ML UDCUP PER TUBE SCH ×3 (05:27→17:25)
[2021-10-10] MEDS: risperiDONE 1 MG TAB PO SCH ×2 (08:11→21:26)
[2021-10-10] MEDS: Senokot S 8.6-50 MG TAB PO SCH ×2 (08:11→20:53)
[2021-10-10] MEDS: Bacitracin 1 PK TOP SCH ×2 (08:11→20:53)
[2021-10-10] MEDS: Saccharomyces boulardii 250 MG CAP PO SCH (08:11)
[2021-10-10] MEDS: Lisinopril 20 MG TAB PO SCH ×2 (08:11→20:53)
[2021-10-10] MEDS: levETIRAcetam 500 MG/5 ML VIAL SLOW IVP SCH ×2 (08:12→20:52)
[2021-10-10] MEDS: Famotidine 20 MG TAB PO SCH ×2 (08:12→20:54)
[2021-10-10] MEDS: Polyethylene Glycol 3350 17 GM Packet PO SCH (08:12)
[2021-10-10] MEDS: Amlodipine 5 MG TAB PO SCH (10:48)
[2021-10-10] MEDS: cefTRIAXone\\ROCEPHIN 2 GM in Sodium Chloride 0.9% 100 ML IVPB SCH (13:29)
[2021-10-10] MEDS: Melatonin 3 MG TAB PER TUBE PRN (20:53)
[2021-10-11] MEDS: Acetaminophen 650 MG/20.3 ML UDCUP PER TUBE SCH ×4 (00:03→17:55)
[2021-10-11] MEDS: Bacitracin 1 PK TOP SCH ×2 (08:46→22:11)
[2021-10-11] MEDS: levETIRAcetam 500 MG/5 ML VIAL SLOW IVP SCH ×2 (08:46→22:16)
[2021-10-11] MEDS: Famotidine 20 MG TAB PO SCH ×2 (08:46→22:11)
[2021-10-11] MEDS: risperiDONE 1 MG TAB PO SCH ×2 (08:46→22:11)
[2021-10-11] MEDS: Amlodipine 5 MG TAB PO SCH (08:46)
[2021-10-11] MEDS: Enoxaparin Sodium 40 MG/0.4 ML SYRINGE SC SCH (08:46)
[2021-10-11] MEDS: Saccharomyces boulardii 250 MG CAP PO SCH (08:46)
[2021-10-11] MEDS: Polyethylene Glycol 3350 17 GM Packet PO SCH (08:46)
[2021-10-11] MEDS: Lisinopril 20 MG TAB PO SCH ×2 (08:46→22:16)
[2021-10-11] MEDS: Senokot S 8.6-50 MG TAB PO SCH ×2 (08:47→22:12)
[2021-10-12] MEDS: Acetaminophen 650 MG/20.3 ML UDCUP PER TUBE SCH ×4 (00:39→18:55)
[2021-10-12] MEDS: levETIRAcetam 500 MG/5 ML VIAL SLOW IVP SCH ×2 (10:27→22:26)
[2021-10-12] MEDS: Enoxaparin Sodium 40 MG/0.4 ML SYRINGE SC SCH (10:27)
[2021-10-12] MEDS: Bacitracin 1 PK TOP SCH ×2 (10:27→22:26)
[2021-10-12] MEDS: Sodium Chloride 0.9% 1,000 ML IV SCH (12:53)
[2021-10-12] MEDS: Lisinopril 20 MG TAB PO SCH ×2 (15:38→22:25)
[2021-10-12] MEDS: Senokot S 8.6-50 MG TAB PO SCH ×2 (15:38→22:25)
[2021-10-12] MEDS: risperiDONE 1 MG TAB PO SCH ×2 (15:38→22:25)
[2021-10-12] MEDS: Famotidine 20 MG TAB PO SCH ×2 (15:38→22:25)
[2021-10-12] MEDS: Amlodipine 5 MG TAB PO SCH (15:39)
[2021-10-12] MEDS: Polyethylene Glycol 3350 17 GM Packet PO SCH (15:40)
[2021-10-12] MEDS: Saccharomyces boulardii 250 MG CAP PO SCH (15:44)
[2021-10-12] MEDS: Melatonin 3 MG TAB PER TUBE PRN (22:25)
[2021-10-13] MEDS: Acetaminophen 650 MG/20.3 ML UDCUP PER TUBE SCH ×5 (00:30→23:48)
[2021-10-13] MEDS: Sodium Chloride 0.9% 1,000 ML IV SCH (02:32)
[2021-10-13 06:19] LABS: #Basophils 0.1 thou/uL (0.0-0.2); #Eosinphils 0.2 thou/uL (0.0-0.7); #Lymphocytes 1.3 thou/uL (1.20-3.40); #Monocytes 0.8 thou/uL (0.11-0.59); #Neutrophils 11.5 thou/uL (1.40-6.50); %Basophils 0.6 % (0.0-1.0); %Eosinophils 1.3 % (0.0-10.0); %Lymphocytes 9.4 % (21.0-51.0); %Monocytes 5.6 % (0.0-10.0); %Neutrophils 83.1 % (42.0-75.0); Hemoglobin 12.4 g/dL (14.0-18.0); Mean Corpuscular HGB CONC 32.3 g/dL (32.0-36.0); Mean Corpuscular Hemoglobin 29.7 pg (27.0-31.0); Mean Corpuscular Volume 91.8 fL (78.0-98.0); Mean Platelet Volume 6.7 fL (7.4-10.4); Platelet Count 515 thou/uL (130-400); RBC Distribution Width 13.1 % (11.5-14.5); Red Blood Cell (RBC) Count 4.18 mill/uL (4.70-6.10); White Blood Cell (WBC) Count 13.9 thou/uL (4.8-10.8)
[2021-10-13] MEDS ORDERED: Haloperidol Lactate 5 MG/ML VIAL SLOW IVP SCH ×2 (06:30→21:00)
[2021-10-13 06:44] LABS: Anion Gap 15 mmol/L (10-20); BUN (Urea Nitrogen) 21 mg/dL (8.9-20.6); Calc. Creatinine Clearance 119 mL/min (70-130); Calcium 9.7 mg/dL (7.8-10.44); Carbon Dioxide 21 mmol/L (22-29); Chloride 105 mmol/L (98-107); Glucose 99 mg/dL (70-105); Magnesium 2.2 mg/dL (1.6-2.6); Phosphorus 4.2 mg/dL (2.3-4.7); Potassium 4.1 mmol/L (3.5-5.1); Sodium 137 mmol/L (136-145)
[2021-10-13] MEDS: Bacitracin 1 PK TOP SCH ×2 (10:00→20:22)
[2021-10-13] MEDS: Saccharomyces boulardii 250 MG CAP PO SCH (10:08)
[2021-10-13] MEDS: Senokot S 8.6-50 MG TAB PO SCH ×2 (10:08→20:22)
[2021-10-13] MEDS: Famotidine 20 MG TAB PO SCH ×2 (10:08→20:22)
[2021-10-13] MEDS: Enoxaparin Sodium 40 MG/0.4 ML SYRINGE SC SCH (10:08)
[2021-10-13] MEDS: levETIRAcetam 500 MG/5 ML VIAL SLOW IVP SCH ×2 (10:08→20:21)
[2021-10-13] MEDS: risperiDONE 1 MG TAB PO SCH ×2 (10:08→20:21)
[2021-10-13] MEDS: Polyethylene Glycol 3350 17 GM Packet PO SCH (10:09)
[2021-10-13] MEDS: Lisinopril 20 MG TAB PO SCH ×2 (10:09→20:21)
[2021-10-13] MEDS: Amlodipine 5 MG TAB PO SCH (10:10)
[2021-10-14] MEDS: Melatonin 3 MG TAB PER TUBE PRN (00:09)
[2021-10-14] MEDS ORDERED: Lorazepam 2 MG/ML VIAL SLOW IVP SCH (01:00)
[2021-10-14] MEDS: Acetaminophen 650 MG/20.3 ML UDCUP PER TUBE SCH ×3 (06:02→18:21)
[2021-10-14] MEDS ORDERED: clonazePAM 1 MG TAB PO SCH (09:00)
[2021-10-14] MEDS: Enoxaparin Sodium 40 MG/0.4 ML SYRINGE SC SCH (09:18)
[2021-10-14] MEDS: levETIRAcetam 500 MG/5 ML VIAL SLOW IVP SCH ×2 (09:18→20:30)
[2021-10-14] MEDS: Polyethylene Glycol 3350 17 GM Packet PO SCH (09:18)
[2021-10-14] MEDS: risperiDONE 1 MG TAB PO SCH ×2 (09:19→20:30)
[2021-10-14] MEDS: Senokot S 8.6-50 MG TAB PO SCH ×2 (09:19→20:32)
[2021-10-14] MEDS: Famotidine 20 MG TAB PO SCH ×2 (09:19→20:30)
[2021-10-14] MEDS: Saccharomyces boulardii 250 MG CAP PO SCH (09:19)
[2021-10-14] MEDS: Lisinopril 20 MG TAB PO SCH ×2 (09:20→20:31)
[2021-10-14] MEDS: Bacitracin 1 PK TOP SCH ×2 (10:15→20:32)
[2021-10-14] MEDS: clonazePAM 1 MG TAB PO SCH (20:29)
[2021-10-15] MEDS: Acetaminophen 650 MG/20.3 ML UDCUP PER TUBE SCH ×5 (00:40→19:52)
[2021-10-15] MEDS: Polyethylene Glycol 3350 17 GM Packet PO SCH (10:12)
[2021-10-15] MEDS: Enoxaparin Sodium 40 MG/0.4 ML SYRINGE SC SCH (10:12)
[2021-10-15] MEDS: Saccharomyces boulardii 250 MG CAP PO SCH (10:13)
[2021-10-15] MEDS: Senokot S 8.6-50 MG TAB PO SCH ×2 (10:13→19:51)
[2021-10-15] MEDS: Bacitracin 1 PK TOP SCH ×2 (10:13→20:52)
[2021-10-15] MEDS: risperiDONE 1 MG TAB PO SCH ×2 (10:13→19:51)
[2021-10-15] MEDS: levETIRAcetam 500 MG/5 ML VIAL SLOW IVP SCH ×2 (10:13→20:52)
[2021-10-15] MEDS: Famotidine 20 MG TAB PO SCH ×2 (10:13→19:52)
[2021-10-15] MEDS: Lisinopril 20 MG TAB PO SCH ×2 (10:14→19:51)
[2021-10-15 12:22] LABS: SARS-CoV-2 PCR by NAA Not Detected (NotDetected)
[2021-10-15] MEDS ORDERED: Haloperidol Lactate 5 MG/ML VIAL SLOW IVP SCH (17:15)
[2021-10-15] MEDS: clonazePAM 1 MG TAB PO SCH (19:52)
[2021-10-16] MEDS: Acetaminophen 650 MG/20.3 ML UDCUP PER TUBE SCH ×4 (05:55→23:43)
[2021-10-16] MEDS ORDERED: Lactated Ringer's 500 ML IV SCH (09:30)
[2021-10-16] MEDS: Enoxaparin Sodium 40 MG/0.4 ML SYRINGE SC SCH (09:37)
[2021-10-16] MEDS: Bacitracin 1 PK TOP SCH ×2 (09:37→19:37)
[2021-10-16] MEDS: Famotidine 20 MG TAB PO SCH ×2 (09:38→19:22)
[2021-10-16] MEDS: levETIRAcetam 500 MG/5 ML VIAL SLOW IVP SCH ×2 (09:49→19:20)
[2021-10-16] MEDS: Polyethylene Glycol 3350 17 GM Packet PO SCH (09:51)
[2021-10-16] MEDS: risperiDONE 1 MG TAB PO SCH ×2 (09:53→19:22)
[2021-10-16] MEDS: Senokot S 8.6-50 MG TAB PO SCH ×2 (09:54→19:38)
[2021-10-16] MEDS: Saccharomyces boulardii 250 MG CAP PO SCH (09:54)
[2021-10-16] MEDS: Lisinopril 20 MG TAB PO SCH (10:20)
[2021-10-16] MEDS: Melatonin 3 MG TAB PER TUBE PRN (19:22)
[2021-10-16] MEDS: clonazePAM 1 MG TAB PO SCH (19:22)
[2021-10-17] MEDS: Acetaminophen 650 MG/20.3 ML UDCUP PER TUBE SCH (06:07)
[2021-10-17] MEDS ORDERED: Acetaminophen 650 MG/20.3 ML UDCUP PER TUBE PRN (08:13)
[2021-10-17] MEDS: Bacitracin 1 PK TOP SCH ×2 (09:07→19:45)
[2021-10-17] MEDS: Famotidine 20 MG TAB PO SCH ×2 (09:08→19:45)
[2021-10-17] MEDS: Enoxaparin Sodium 40 MG/0.4 ML SYRINGE SC SCH (09:08)
[2021-10-17] MEDS: levETIRAcetam 500 MG/5 ML VIAL SLOW IVP SCH ×2 (09:10→19:46)
[2021-10-17] MEDS: Polyethylene Glycol 3350 17 GM Packet PO SCH (09:11)
[2021-10-17] MEDS: risperiDONE 1 MG TAB PO SCH ×2 (09:11→19:46)
[2021-10-17] MEDS: Saccharomyces boulardii 250 MG CAP PO SCH (09:11)
[2021-10-17] MEDS: Senokot S 8.6-50 MG TAB PO SCH ×2 (09:12→19:46)
[2021-10-17] MEDS: clonazePAM 1 MG TAB PO SCH (19:45)
[2021-10-18] MEDS: Enoxaparin Sodium 40 MG/0.4 ML SYRINGE SC SCH (08:59)
[2021-10-18] MEDS: Polyethylene Glycol 3350 17 GM Packet PO SCH (09:00)
[2021-10-18] MEDS: Senokot S 8.6-50 MG TAB PO SCH ×2 (09:00→20:29)
[2021-10-18] MEDS: Famotidine 20 MG TAB PO SCH ×2 (09:01→20:29)
[2021-10-18] MEDS: Saccharomyces boulardii 250 MG CAP PO SCH (09:05)
[2021-10-18] MEDS: risperiDONE 1 MG TAB PO SCH ×2 (09:05→20:29)
[2021-10-18] MEDS: Bacitracin 1 PK TOP SCH ×2 (09:20→20:29)
[2021-10-18] MEDS: levETIRAcetam 500 MG/5 ML VIAL SLOW IVP SCH (11:13)
[2021-10-18] MEDS ORDERED: Haloperidol Lactate 5 MG/ML VIAL IM SCH (18:45)
[2021-10-18] MEDS ORDERED: Haloperidol Lactate 5 MG/ML VIAL SLOW IVP SCH (18:45)
[2021-10-18] MEDS: clonazePAM 1 MG TAB PO SCH (20:29)
[2021-10-18] MEDS: levETIRAcetam 500 MG TAB PO SCH (20:29)
[2021-10-19] MEDS: Polyethylene Glycol 3350 17 GM Packet PO SCH (08:59)
[2021-10-19] MEDS: Enoxaparin Sodium 40 MG/0.4 ML SYRINGE SC SCH (09:02)
[2021-10-19] MEDS: Famotidine 20 MG TAB PO SCH ×2 (09:02→20:15)
[2021-10-19] MEDS: risperiDONE 1 MG TAB PO SCH ×2 (09:02→20:15)
[2021-10-19] MEDS: Senokot S 8.6-50 MG TAB PO SCH ×2 (09:03→20:16)
[2021-10-19] MEDS: levETIRAcetam 500 MG TAB PO SCH ×2 (09:03→20:15)
[2021-10-19] MEDS: clonazePAM 1 MG TAB PO SCH (20:15)
[2021-10-20] MEDS: Enoxaparin Sodium 40 MG/0.4 ML SYRINGE SC SCH (09:10)
[2021-10-20] MEDS: levETIRAcetam 500 MG TAB PO SCH ×2 (09:11→20:10)
[2021-10-20] MEDS: Polyethylene Glycol 3350 17 GM Packet PO SCH (09:11)
[2021-10-20] MEDS: risperiDONE 1 MG TAB PO SCH ×2 (09:11→20:10)
[2021-10-20] MEDS: Senokot S 8.6-50 MG TAB PO SCH ×2 (09:11→20:12)
[2021-10-20] MEDS: clonazePAM 1 MG TAB PO SCH (20:10)
[2021-10-21 05:50] LABS: Hemoglobin 13.3 g/dL (14.0-18.0); Platelet Count 652 thou/uL (130-400)
[2021-10-21 06:02] LABS: Calc. Creatinine Clearance 138 mL/min (70-130)
[2021-10-21] MEDS: risperiDONE 1 MG TAB PO SCH ×2 (08:51→21:15)
[2021-10-21] MEDS: Senokot S 8.6-50 MG TAB PO SCH ×2 (08:51→21:15)
[2021-10-21] MEDS: levETIRAcetam 500 MG TAB PO SCH ×2 (08:51→21:15)
[2021-10-21] MEDS: Enoxaparin Sodium 40 MG/0.4 ML SYRINGE SC SCH (08:51)
[2021-10-21] MEDS: Polyethylene Glycol 3350 17 GM Packet PO SCH (08:52)
[2021-10-21] MEDS: clonazePAM 1 MG TAB PO SCH (21:16)
[2021-10-21 22:07] LABS: SARS-CoV-2 PCR by NAA Not Detected (NotDetected)
[2021-10-22] MEDS: risperiDONE 1 MG TAB PO SCH ×2 (09:43→22:30)
[2021-10-22] MEDS: Polyethylene Glycol 3350 17 GM Packet PO SCH (09:44)
[2021-10-22] MEDS: Enoxaparin Sodium 40 MG/0.4 ML SYRINGE SC SCH (09:44)
[2021-10-22] MEDS: Senokot S 8.6-50 MG TAB PO SCH ×2 (09:44→21:10)
[2021-10-22] MEDS: levETIRAcetam 500 MG TAB PO SCH ×2 (09:44→21:10)
[2021-10-22] MEDS ORDERED: Scopolamine 1.5 mg/72 hour Patch TD SCH (11:00)
[2021-10-22 14:35] VITALS: BMI 24.5
[2021-10-22] MEDS ORDERED: Acetaminophen 500 MG TAB PO PRN (14:36)
[2021-10-22 19:48] VITALS: BP 97/62; TEMP 98.2
[2021-10-22] MEDS: clonazePAM 1 MG TAB PO SCH (22:31)
[2021-10-23] MEDS: Melatonin 3 MG TAB PER TUBE PRN (00:26)
== END 2021-10-23 00:45 | disposition home or self-care (01) | DRG 85 ==
LOC: ERS 18:27 → EDBD 18:27 → UNDOADMIN 19:35 → CCU 19:35 → SURG A 10-09 14:32
PROVIDERS: ADMIT Nurse Practitioner Acute Care; ATTEND Surgery
PROC: 0BH17EZ Insertion of Endotracheal Airway into Trachea, Via Natural or Artificial Opening (ICD-10-PCS; principal; 2021-10-01)
PROC: 5A1955Z Respiratory Ventilation, Greater than 96 Consecutive Hours (ICD-10-PCS; 2021-10-01)
PROC: 0BCB8ZZ Extirpation of Matter from Left Lower Lobe Bronchus, Via Natural or Artificial Opening Endoscopic (ICD-10-PCS; 2021-10-06)
PROC: 0BC88ZZ Extirpation of Matter from Left Upper Lobe Bronchus, Via Natural or Artificial Opening Endoscopic (ICD-10-PCS; 2021-10-06)
PROC: 0BC38ZZ Extirpation of Matter from Right Main Bronchus, Via Natural or Artificial Opening Endoscopic (ICD-10-PCS; 2021-10-06)
PROC: 0BC48ZZ Extirpation of Matter from Right Upper Lobe Bronchus, Via Natural or Artificial Opening Endoscopic (ICD-10-PCS; 2021-10-06)
PROC: 0BC68ZZ Extirpation of Matter from Right Lower Lobe Bronchus, Via Natural or Artificial Opening Endoscopic (ICD-10-PCS; 2021-10-06)
PROC: 0BCB8ZZ Extirpation of Matter from Left Lower Lobe Bronchus, Via Natural or Artificial Opening Endoscopic (ICD-10-PCS; 2021-10-08)
PROC: 0BC48ZZ Extirpation of Matter from Right Upper Lobe Bronchus, Via Natural or Artificial Opening Endoscopic (ICD-10-PCS; 2021-10-08)
PROC: 0BC88ZZ Extirpation of Matter from Left Upper Lobe Bronchus, Via Natural or Artificial Opening Endoscopic (ICD-10-PCS; 2021-10-08)
PROC: 0BC68ZZ Extirpation of Matter from Right Lower Lobe Bronchus, Via Natural or Artificial Opening Endoscopic (ICD-10-PCS; 2021-10-08)
PROC: 0BC38ZZ Extirpation of Matter from Right Main Bronchus, Via Natural or Artificial Opening Endoscopic (ICD-10-PCS; 2021-10-08)
DX: S06.6X1A Traumatic subarachnoid hemorrhage with loss of consciousness of 30 minutes or less, initial encounter (principal); J96.01 Acute respiratory failure with hypoxia; J69.0 Pneumonitis due to inhalation of food and vomit; J15.211 Pneumonia due to Methicillin susceptible Staphylococcus aureus; D62 Acute posthemorrhagic anemia; S06.1X1A Traumatic cerebral edema with loss of consciousness of 30 minutes or less, initial encounter; S06.5X1A Traumatic subdural hemorrhage with loss of consciousness of 30 minutes or less, initial encounter; S02.119A Unspecified fracture of occiput, initial encounter for closed fracture; E87.6 Hypokalemia; Y04.2XXA Assault by strike against or bumped into by another person, initial encounter; Z20.822 Contact with and (suspected) exposure to COVID-19; R40.2342 Coma scale, best motor response, flexion withdrawal, at arrival to emergency department; R40.2122 Coma scale, eyes open, to pain, at arrival to emergency department; R40.2232 Coma scale, best verbal response, inappropriate words, at arrival to emergency department; I10 Essential (primary) hypertension; N28.89 Other specified disorders of kidney and ureter; R00.1 Bradycardia, unspecified; E83.39 Other disorders of phosphorus metabolism; G47.00 Insomnia, unspecified; E83.42 Hypomagnesemia; R45.1 Restlessness and agitation; Z78.1 Physical restraint status; Y92.69 Other specified industrial and construction area as the place of occurrence of the external cause
CPT/HCPCS: 31500; 31624; 36415; 36416; 36600; 70450; 70486; 71045; 71260; 72125; 72170; 74018; 74177; 76377; 80048; 80053; 80306; 80307; 81001; 82565; 82805; 83735; 83880; 84100; 84484; 85014; 85018; 85025; 85049; 85610; 85730; 86850; 86900; 86901; 87040; 87070; 87077; 87186; 87205; 93005; 93010; 93306; 93970; 94002; 94003; 94640; 94660; 96374; 96375; 96376; G0390; J0360; J0610; J0696; J1630; J1650; J1940; J1953; J1956; J2060; J2250; J2543; J2550; J2704; J3010; J3475; J3480; J3490; J7030; J7050; J7120; J7620; Q9967; S0028; U0002; U0003; U0005